=== PATIENT | female | born 1940 | race Caucasian/White ===

== ENCOUNTER 2017-07-08 15:04 | Emergency (ER) | payer MEDICARE, BC ==
[2017-07-08] MEDS ORDERED: MORPHINE SULFATE 4MG/ML PREFILLED SYRINGE IVP ONE (15:31)
[2017-07-08] MEDS ORDERED: ONDANSETRON HCL IV 4 MG/2 ML VIAL IVP ONE (15:31)
--- NOTE | 2017-07-08 15:39 | Emergency Department Record ---
History of Present Illness - General Chief Complaint: Headache Migraine Stated Complaint: EAR PAIN/BLEEDING Time Seen by Provider: 07/08/17 15:22 Source: Patient Mode of Arrival: Ambulatory Limitations: No limitations - History of Present Illness Initial Comments: The patient is here due to a bad PANCHAL that started an hour ago. She was driving and then suddenly noticed a L sided and L frontal PANCHAL. The pain was quite severe so she decided to come to the ER. On the way here she noticed blood coming out of the L ear. There has been no trauma, fall, fever, neck pain or blood thinner use. The patient does have a hx of migraine PANCHAL's but states this is different. She denies any arm or leg numbness, weakness, visual changes, or balance issues. MD Complaint: Headache Onset/Timin -: Minutes(s) Onset Description: Sudden Location: Frontal, Left Severity: Moderate Severity scale (1-10): 9 Quality: Aching, Different than previous headaches Consistency: Constant Improves With: Nothing Worsens With: None Associated Symptoms: Other Treatments Prior to Arrival: None - Related Data Home Medications Medication Instructions Recorded Confirmed Last Taken Tramadol HCl 50 mg PO DAILY 07/08/17 07/08/17 Unknown Previous Rx's Medication Instructions Recorded Cefdinir [Omnicef] 300 mg PO BID #20 cap 07/08/17 Allergies Allergy/AdvReac Type Severity Reaction Status Date / Time No Known Drug Allergies Allergy Verified 02/24/15 19:16 Travel Screening - Travel/Exposure Within Last 30 Days Have you traveled within the last 30 days?: No Review of Systems Constitutional: Denies: Chills, Fever Eyes: Denies: Eye discharge ENT: Denies: Congestion Respiratory: Denies: Cough, Dyspnea Past Medical History - SOCIAL HISTORY Smoking Status: Former smoker - RESPIRATORY Hx Respiratory Disorders: No - CARDIOVASCULAR Hx Cardio Disorders: Yes Hx Hypertension: Yes Hx Hypotension: Yes (recent and current) Comment:: Carotid artery stenosis - NEURO Hx Neuro Disorders: No - GI Hx GI Disorders: No - Hx Genitourinary Disorders: No - ENDOCRINE Hx Endocrine Disorders: Yes Hx Diabetes: No Hx Thyroid Disease: Yes (hypo) - MUSCULOSKELETAL Hx Musculoskeletal Disorders: Yes Hx Arthritis: Yes - PSYCH Hx Psych Problems: No - HEMATOLOGY/ONCOLOGY Hx Hematology/Oncology Disorders: No Family Medical History Any Significant Family History?: Yes Hx Heart Disease: Father, Mother Hx Stroke: Mother Physical Exam - General General Appearance: Alert, Oriented x3, Cooperative, Mild distress (due to the PANCHAL.) - Head Head exam: Atraumatic, Normocephalic, Normal inspection - Eye Eye exam: Normal appearance, PERRL - ENT ENT exam: negative: Normal exam, TM's normal bilaterally (The L TM is not visible due to blood in the ear canal.) Throat exam: Normal inspection. negative: Tonsillar erythema, Tonsillar exudate - Neck Neck exam: Normal inspection, Full ROM. negative: Tenderness - Respiratory Respiratory exam: Normal lung sounds bilaterally. negative: Respiratory distress - Cardiovascular Cardiovascular Exam: Regular rate, Normal rhythm, Normal heart sounds - GI/Abdominal GI/Abdominal exam: Soft, Normal bowel sounds. negative: Tenderness - Extremities Extremities exam: Normal inspection, Full ROM, Normal capillary refill. negative: Tenderness - Back Back exam: Reports: Normal inspection - Neurological Neurological exam: Alert, Normal gait, Oriented X3. negative: Abnormal gait, Motor sensory deficit Course Vital Signs 07/08/17 15:05 Temperature 98.5 F Pulse Rate 74 Respiratory 20 Rate Blood Pressure 232/113 Pulse Ox 97 - Reevaluation(s) Reevaluation #1: The patient is doing better at this time. She states the ear pain is improved but still present. I did discuss the issues with the patient and the need for oral abx's and ear drops. 07/08/17 17:09 Reevaluation #2: The patient is doing a lot better at this time. Her pain is now improved and her BP is better. The last BP is 170/100. The patient is ambulating normally. There is still blood coming from the L ear minimally. We did start the patient on ear drops and will continue oral Abx's at home. She is to F/U with ENT next week and return to the ER for any worsening symptoms. 07/08/17 18:36 Medical Decision Making - Data Complexity MDM Data: Labs Ordered and/or Reviewed, X-Ray Ordered and/or Reviewed - Lab Data Result diagrams: 07/08/17 15:40 07/08/17 15:40 - Radiology Data Radiology results: Report reviewed (Head CT: Neg.) Disposition Disposition: Discharge Clinical Impression: Hypertension Qualifiers: Hypertension type: unspecified Qualified Code(s): I10 - Essential (primary) hypertension Otitis externa Qualifiers: Otitis externa type: unspecified type Chronicity: unspecified Laterality: left Qualified Code(s): H60.92 - Unspecified otitis externa, left ear Disposition: Home, Self-Care Condition: (2) Stable Instructions: Ruptured Eardrum (ED) Additional Instructions: Please keep the ear dry at home and use the [place] or Tramadol as directed. Please start the Cefdinir tomorrow and continue the Ciprodex 4 drops twice a day for a week as directed. Please see an ENT specialist at [facility], call [phone] for an appointment. Return to the ER for any worsening pain, fever, or elevated BP. Prescriptions: Cefdinir [Omnicef] 300 mg PO BID #20 cap Forms: Patient Portal Access Time of Disposition: 18:40 Quality - Quality Measures Quality Measures: N/A - Blood Pressure Screening View Details: Yes Does Patient Have Any of the Following: Active Dx of HTN Blood Pressure Classification: Hypertensive Reading Systolic Measurement: 232 Diastolic Measurement: 113 Screening for High Blood Pressure: Patient Exclusion, Hx of HTN [[id number]]
[2017-07-08 15:52] LABS: BASO % 0.3 % (0-6); EOS % 1.3 % (0-6); GRAN % 73.5 % (47-80); HEMATOCRIT 40.4 % (35.0-47.0); LYMPH % 17.6 % (16-45); MEAN CELL VOLUME 90.4 fl (81-97); MEAN CORPUSCULAR HEMOGLOBIN 29.1 pg (27-33); MEAN CORPUSCULAR HGB CONC 32.2 g/dl (32-36); MEAN PLATELET VOLUME 11.1 fl (7.4-10.4); MONO % 7.3 % (0-9); PLATELET COUNT 189 K/uL (130-400); RED BLOOD COUNT 4.47 M/uL (3.80-5.40); RED CELL DISTRIBUTION WIDTH 13.5 % (11.5-14.5); WHITE BLOOD COUNT W/O DIFF 9.4 K/uL (4.2-12.2)
[2017-07-08 16:08] LABS: PARTIAL THROMBOPLASTIN TIME 27.2 SECONDS (24.5-39.1); PROTHROMBIN TIME (PATIENT) 10.3 SECONDS (9.5-12.1)
[2017-07-08 16:09] LABS: BLOOD UREA NITROGEN 23 mg/dL (8-23); CREATININE 0.9 mg/dL (0.5-0.9); EST GLOMERULAR FILTRATION RATE > 60 mL/min; TOTAL PROTEIN 7.1 g/dL (6.6-8.7)
[2017-07-08 16:11] LABS: GLUCOSE,RANDOM 128 mg/dL (74-109)
[2017-07-08 16:14] LABS: ALB/GLOB RATIO 1.4 (1.1-1.8); ALBUMIN 4.1 g/dL (4.0-5.0); ALKALINE PHOSPHATASE 108 U/L (35-104); ALT/SGPT 7 U/L (<33); AST/SGOT 12 U/L (10.0-35.0)
[2017-07-08] MEDS ORDERED: CIPROFLOXACIN HCL/DEXAMETHASONE OTIC SUSP OT ONE (16:15)
[2017-07-08] MEDS ORDERED: HYDROMORPHONE HCL 2 MG/ML VIAL IVP ONE (16:19)
[2017-07-08] MEDS ORDERED: LISINOPRIL 20 MG TABLET PO ONE (17:20)
[2017-07-08] MEDS ORDERED: CEFTRIAXONE SODIUM 1 GM in 0.9 % SODIUM CHLORIDE 100ML 100 ML IVPB ONE (17:21)
[2017-07-08] MEDS ORDERED: HYDROCODONE/APAP 5/325MG TABLET PO ONE (18:41)
--- NOTE | 2017-07-10 09:37 | CT SCAN REPORT ---
DATE: 07/08/2017. EXAM: CT OF THE BRAIN. HISTORY: Headache. TECHNIQUE: CT of the brain without contrast. COMPARISON: MRI of the brain dated 02/22/2015. FINDINGS: The globes are intact. Mucosal thickening of the maxillary sinuses and ethmoid air cells. Mucosal thickening with air fluid level of the left sphenoid sinus. No displaced or depressed skull fracture. No intra- or extra- axial hemorrhage. CT is limited for the evaluation of acute infarct. No CT evidence for large or territorial acute infarct. Diffuse atrophy with rather extensive small-vessel ischemic change. No mass or midline shift. IMPRESSION: ATROPHY WITH EXTENSIVE SMALL-VESSEL ISCHEMIC CHANGE. PARANASAL SINUSITIS ABOVE. JOB NUMBER: [id number] [facility]
== END 2017-07-08 18:56 | disposition home or self-care (01) ==
LOC: ER 15:04
DX: I10 Essential (primary) hypertension (principal); H60.322 Hemorrhagic otitis externa, left ear; R51 Headache; Z87.891 Personal history of nicotine dependence
CPT/HCPCS: 99284 ×2; 96365; 96375; 85025; 85730; 85610; 80053; 70450; J2405; J1170; J2274